=== PATIENT | male | born 1965 | race Caucasian/White ===

== ENCOUNTER 2020-06-15 11:54 | Emergency (ER) | payer BC ==
[2020-06-15 12:26] LABS: #Basophils 0.1 thou/uL (0.0-0.2); #Eosinphils 0.1 thou/uL (0.0-0.7); #Lymphocytes 2.2 thou/uL (1.20-3.40); #Monocytes 0.5 thou/uL (0.11-0.59); #Neutrophils 4.1 thou/uL (1.40-6.50); %Basophils 1.2 % (0.0-1.0); %Eosinophils 1.5 % (0.0-10.0); %Lymphocytes 31.1 % (21.0-51.0); %Monocytes 7.5 % (0.0-10.0); %Neutrophils 58.7 % (42.0-75.0); Hemoglobin 14.1 g/dL (14.0-18.0); Mean Corpuscular Hemoglobin 31.6 pg (27.0-31.0); Mean Corpuscular Volume 93.1 fL (78.0-98.0); Mean Platelet Volume 8.7 fL (7.4-10.4); Platelet Count 229 thou/uL (130-400); RBC Distribution Width 11.1 % (11.5-14.5); Red Blood Cell (RBC) Count 4.46 mill/uL (4.70-6.10)
[2020-06-15 12:46] LABS: ALT (SGPT) 70 U/L (8-55); AST (SGOT) 28 U/L (5-34); Albumin 4.2 g/dL (3.5-5.0); Alkaline Phosphatase 55 U/L (40-110); Anion Gap 13 mmol/L (10-20); BUN (Urea Nitrogen) 15 mg/dL (8.4-25.7); Bilirubin, Total 0.4 mg/dL (0.2-1.2); Calc. Creatinine Clearance 0 mL/min (70-130); Carbon Dioxide 23 mmol/L (22-29); Chloride 106 mmol/L (98-107); Globulin 2.9 g/dL (2.4-3.5); Glucose 110 mg/dL (70-105); Potassium 4.1 mmol/L (3.5-5.1); Protein, Total 7.1 g/dL (6.0-8.3); Sodium 138 mmol/L (136-145)
[2020-06-15 12:47] LABS: Bilirubin Negative (Negative); Blood, Urine Negative (Negative); Clarity Clear (Clear); Glucose, Urine (Dipstick) Normal (Negative); Ketone, Urine Negative (Negative); Leukocyte Negative Leu/uL (Negative); Nitrite Negative (Negative); Protein, Urine (Dipstick) Negative (Neg-Trace); Specific Gravity, Urine 1.013 (1.002-1.036); Urobilinogen Normal mg/dL (Less than 2); pH, Urine 5.5 (5.0-9.0)
--- NOTE | 2020-06-15 13:43 | CT ---
ABDOMEN AND PELVIC CT SCAN WITHOUT IV CONTRAST: Date: 06/15/2020 COMPARISON: 05/02/2011. HISTORY: Dysuria for 4-5 days. FINDINGS: Two small calcified granulomata in the right lower lung zone. Prominent fatty changes in the liver wi th a small stable right lobe of liver cyst. There is some fatty sparing adjacent to the gallbladder. No evidence of gallstones or acute cholecystitis. Pancreas region is unremarkable. Adrenal glands are unremarkable. Spleen is unremarkable. Renal parapelvic cysts bilaterally, as well as a 3.5 cm medial left renal cortical cyst. No renal calculus or acute obstruction. Colonic diverticulosis without acute diverticulitis. No CT evidence for acute appendicitis. IMPRESSION: 1. No significant acute process in the abdomen or pelvis. 2. Fatty changes in the liver. 3. Bilateral renal cysts and small right lobe of liver cyst. 4. Other findings as above. POS: RRE
== END 2020-06-15 13:58 | disposition home or self-care (01) ==
LOC: ERS 11:54
DX: R30.0 Dysuria (principal); R39.198 Other difficulties with micturition; I10 Essential (primary) hypertension; F17.220 Nicotine dependence, chewing tobacco, uncomplicated
CPT/HCPCS: 36415; 74176; 80053; 81003; 85025

== ENCOUNTER 2021-12-02 09:29 | Outpatient (CLI) | payer BC ==
[2021-12-02 10:47] LABS: Bilirubin Neg (Negative); Blood, Urine Negative (Negative); Clarity Clear (Clear); Glucose, Urine (Dipstick) Normal (Negative); Ketone, Urine Negative (Negative); Leukocyte Negative (Negative); Nitrite Negative (Negative); Protein, Urine (Dipstick) 15 mg/dl (Neg-Trace); Urobilinogen Normal mg/dL (Less than 2)
[2021-12-02 10:57] LABS: Hemoglobin 13.5 g/dL (13.5-17.5); Mean Corpuscular HGB CONC 33.3 g/dL (32.0-36.0); Mean Corpuscular Hemoglobin 31.4 pg (27.0-33.0); Mean Corpuscular Volume 94.2 fl (81.2-95.1); Mean Platelet Volume 11.3 fl (7.4-10.4); Platelet Count 232 10x3/uL (150-450); RBC Distribution Width 11.9 % (11.5-14.5); White Blood Cell (WBC) Count 7.3 10x3/uL (3.5-10.5)
[2021-12-02 11:07] LABS: Bacteria/HPF Rare-Few HPF (None Seen); RBC/HPF None Seen HPF (0-3); Squamous Epithelial 0-3 HPF (0-3); WBC/HPF 0-3 HPF (0-3)
[2021-12-02 11:13] LABS: Anion Gap 15 mmol/L (10-20); BUN (Urea Nitrogen) 26 mg/dL (8.4-25.7); Calc. Creatinine Clearance 0 mL/min (70-130); Calcium 9.7 mg/dL (7.8-10.44); Carbon Dioxide 25 mmol/L (22-29); Chloride 104 mmol/L (98-107); Glucose 130 mg/dL (70-105); Potassium 4.7 mmol/L (3.5-5.1); Sodium 139 mmol/L (136-145)
[2021-12-02 18:14] LABS: SARS-CoV-2 PCR by NAA Not Detected (NotDetected)
== END 2021-12-02 09:30 | disposition home or self-care (01) ==
LOC: LABBT 09:29
PROVIDERS: ATTEND Urology
DX: Z01.818 Encounter for other preprocedural examination (principal); N40.1 Benign prostatic hyperplasia with lower urinary tract symptoms; Z20.822 Contact with and (suspected) exposure to COVID-19
CPT/HCPCS: 80048; 81001; 85027; 87086; 93005; 93010; U0003; U0005

== ENCOUNTER 2021-12-07 06:38 | Day surgery (SDC) | payer BC ==
[2021-12-02 12:37] VITALS: BMI 32.0
[2021-12-07] MEDS ORDERED: Levofloxacin 500 mg/D5W 100 ml Premix Bag ONE (09:00)
[2021-12-07] MEDS ORDERED: Fentanyl 100 MCG/2 ML VIAL ONE (09:11)
[2021-12-07] MEDS ORDERED: PROPOFOL 200 MG/20 ML VIAL ONE (09:15)
[2021-12-07] MEDS ORDERED: Lidocaine 1% PF 5 ML VIAL ONE (09:15)
[2021-12-07] MEDS ORDERED: Phenazopyridine HCl 100 MG TAB ONE (10:32)
[2021-12-07] MEDS ORDERED: Oxybutynin 5 MG TAB ONE (10:32)
[2021-12-07] MEDS ORDERED: Ketorolac Tromethamine 30 MG/ML VIAL ONE (10:32)
== END 2021-12-07 11:28 | disposition home or self-care (01) ==
LOC: SDC 06:38
PROVIDERS: ATTEND Urology
PROC: 0T7D8DZ Dilation of Urethra with Intraluminal Device, Via Natural or Artificial Opening Endoscopic (ICD-10-PCS; principal; 2021-12-07)
DX: N40.1 Benign prostatic hyperplasia with lower urinary tract symptoms (principal); R39.15 Urgency of urination; R35.0 Frequency of micturition; I10 Essential (primary) hypertension; Z79.899 Other long term (current) drug therapy; Z88.1 Allergy status to other antibiotic agents; Z88.2 Allergy status to sulfonamides
CPT/HCPCS: J1885; J1956; J2704; J3010; L8699

== ENCOUNTER 2022-02-16 10:18 | Emergency (ER) | payer BC ==
[2022-02-16] MEDS ORDERED: Bupivacaine 0.25% 10 ML VIAL ONE (11:21)
[2022-02-16] MEDS ORDERED: Ketorolac Tromethamine 30 MG/ML VIAL ONE (11:21)
== END 2022-02-16 12:13 | disposition home or self-care (01) ==
LOC: ERS 10:18
DX: K02.9 Dental caries, unspecified (principal); I10 Essential (primary) hypertension; F17.220 Nicotine dependence, chewing tobacco, uncomplicated; Z79.899 Other long term (current) drug therapy
CPT/HCPCS: 64400; J1885; S0020

== ENCOUNTER 2023-10-05 09:09 | Outpatient (CLI) | payer BC | END 2023-10-05 09:10 | disposition home or self-care (01) | LOC: BICMRI 09:09 | PROVIDERS: ATTEND Family Medicine | DX: M48.02 Spinal stenosis, cervical region (principal); M47.813 Spondylosis without myelopathy or radiculopathy, cervicothoracic region; M47.814 Spondylosis without myelopathy or radiculopathy, thoracic region; M50.33 Other cervical disc degeneration, cervicothoracic region; M50.323 Other cervical disc degeneration at C6-C7 level; M51.34 Other intervertebral disc degeneration, thoracic region; M50.022 Cervical disc disorder at C5-C6 level with myelopathy; M47.12 Other spondylosis with myelopathy, cervical region | CPT/HCPCS: 72141 ==

== ENCOUNTER 2025-01-31 08:00 | Outpatient (CLI) | payer BC | END 2025-01-31 08:01 | disposition home or self-care (01) | LOC: SCSMRI 08:00 | PROVIDERS: ATTEND Family Medicine | DX: M51.17 Intervertebral disc disorders with radiculopathy, lumbosacral region (principal); G89.29 Other chronic pain; M47.26 Other spondylosis with radiculopathy, lumbar region; M47.27 Other spondylosis with radiculopathy, lumbosacral region; M47.25 Other spondylosis with radiculopathy, thoracolumbar region; M48.061 Spinal stenosis, lumbar region without neurogenic claudication; M48.07 Spinal stenosis, lumbosacral region; M25.78 Osteophyte, vertebrae | CPT/HCPCS: 72148 ==